=== PATIENT | male | born 1950 | race Caucasian/White ===

== ENCOUNTER 2023-12-16 07:06 | Observation (INO) ==
[~2023-12-16 07:06] MED LIST: NS 0.45% 1000 ml BAG 1,000 ML IV SCH; Naloxone 0.4 mg VIAL 0.4 mg/ml 1 ml VIAL IV PRN; Ondansetron 4 mg VIAL 2 MG/ML 2 ml VIAL IV PRN; Propofol 10 mg/ml 100 ML BTL 1,000 MG/100 ML BTL ONE; fentaNYL 100 mcg/2 ml 50 MCG/ML VIAL IV PRN
[2023-12-16 07:45] LABS: Rapid COVID-19 Molecular Undetected (Undetected)
[2023-12-16] MEDS ORDERED: fentaNYL 100 mcg/2 ml 50 MCG/ML VIAL ONE ×2 (08:08→09:35)
[2023-12-16] MEDS ORDERED: Lidocaine 2% PF 5 ML VIAL ONE (08:08)
[2023-12-16] MEDS ORDERED: Phenylephrine IV 10 MG/ML 1 ml VIAL ONE (08:09)
[2023-12-16] MEDS ORDERED: Midazolam 2 mg/2 ml VIAL 1 mg/ml 2 ml VIAL (2 mg) ONE ×2 (08:09→09:35)
[2023-12-16] MEDS ORDERED: Dexamethasone IV 4 MG/ML VIAL 1 ml VIAL ONE (08:09)
[2023-12-16] MEDS ORDERED: Ondansetron 4 mg VIAL 2 MG/ML 2 ml VIAL ONE (08:09)
[2023-12-16] MEDS ORDERED: ceFAZolin 2 GM PREMIX 2 GM/50 ML BAG ONE (08:11)
[2023-12-16] MEDS ORDERED: Tranexamic Acid 1 GM/100ML BAG 2,000 MG/200 ML BAG IV ONE (08:11)
[2023-12-16] MEDS: Lactated Ringers 1000 ml BAG 1,000 ML IV SCH ×2 (08:45→17:14)
[2023-12-16] MEDS ORDERED: Bupivacaine 0.5% PF 10 ML SDV VIAL INJ ONE (09:20)
[2023-12-16] MEDS ORDERED: ROPIVACAINE 5 MG/ML 30 ML BTL (0.5%) ONE ×2 (09:31→09:46)
[2023-12-16] MEDS ORDERED: Sterile Water for Inj 10 ML ONE (10:22)
[2023-12-16] MEDS ORDERED: Calcium Carb (TUMS) 500 mg CHEW TAB PO PRN (12:39)
[2023-12-16] MEDS ORDERED: Ondansetron ODT 4 mg TAB 4 MG TAB PO PRN (12:39)
[2023-12-16] MEDS ORDERED: Magnesium Hydroxide LIQ 30 ML UDC PO PRN (12:39)
[2023-12-16] MEDS ORDERED: Lactulose 30 ml UDC PO PRN (12:39)
[2023-12-16] MEDS ORDERED: Ondansetron 4 mg VIAL 2 MG/ML 2 ml VIAL IV PRN (12:39)
[2023-12-16] MEDS ORDERED: Morphine 2 MG/ML SYRINGE IV PRN (12:39)
[2023-12-16] MEDS: Acetaminophen IV 1 GM/100ML 1,000 MG/100 ML BAG IV ONE (14:10)
[2023-12-16] MEDS: Buffered Lidocaine 1% SYRIN 1 ml INTRADERM ONE (14:11)
[2023-12-16] MEDS: ceFAZolin 2 GM PREMIX 2 GM/50 ML BAG IV SCH (18:35)
[2023-12-16] MEDS: Magnesium Hydroxide LIQ 30 ML UDC PO SCH (21:19)
[2023-12-17 06:27] LABS: Hematocrit 32.7 % (38-53); Hemoglobin 11.1 g/dL (13.2-16.3); Mean Platelet Volume 8.4 fL (7.5-11.2); Platelet Count 155 10^3/uL (150-450)
[2023-12-17 07:15] LABS: Calcium 8.3 mg/dL (8.6-10.3); Creatinine, Serum 1.11 mg/dL (0.67-1.17); Potassium 4.3 mmol/L (3.5-5.0); eGFR CKD-EPI 69.3 (>60)
[2023-12-17] MEDS: Vitamin THERAPEUTIC TAB PO SCH (09:11)
[2023-12-17 09:36] VITALS: BP 127/73
== END 2023-12-17 12:55 | disposition home or self-care (01) ==
LOC: SSU 07:06 → OR 07:06
PROVIDERS: ADMIT Orthopaedic Surgery Adult Reconstructive Orthopaedic Surgery; ATTEND Orthopaedic Surgery Adult Reconstructive Orthopaedic Surgery